=== PATIENT | male | born 1945 | race Caucasian/White ===

== ENCOUNTER 2020-08-17 22:07 | Inpatient (IN) | payer MEDICARE ==
[~2020-08-17] VITALS: Ht 182.9 cm; Wt 68.7 kg
[~2020-08-17 22:07] MED LIST: ALBUTEROL; APIX5TAB PO; ASPI-963 PO; CEFD300C37 PO; CLOP75TA PO; DOXY100T PO; GLIM2TAB7 PO; METO25TA4 PO; MONT10TA17 PO; ROSU40TA22 PO
--- NOTE | 2020-08-17 22:20 | NUR ---
RAFIA RN: THIS IS A 75 YO MALE C/O "STABBING" CHEST PAIN X 2 HOURS TODAY BUT PER SON PT HAS BEEN C/O OF SAME INTERMITTENTLY OVER THE LAST TWO WEEKS. HX OF OPEN HEART SX IN 2019 AND "CODED TWICE ON TASHA LAST YEAR". PT REPORTS PAIN WAS 10/10 AND IS NOW 6/10. PT REPORTS HE TOOK A NEXIUM EARLY [employer]IL[employer]. PT AO X 4. SKIN PWD. RESP EVEN AND UNLABORED. PT ON CONT BP, CARDIAC AND SPO2 MONITORS. EKG DONE. ELIAZAR MADRID AT BEDSIDE FOR EVAL.
[2020-08-17] MEDS ORDERED: ONDANSETRON 2MG/ML, 2ML IVPush ONE (22:30)
[2020-08-17] MEDS ORDERED: SODIUM CHLORIDE FLUSH 10ML SYR IVF ONE (22:30)
[2020-08-17] MEDS ORDERED: ASPIRIN 81 MG TABLET CHEW PO ONE (22:30)
[2020-08-17] MEDS ORDERED: MORPHINE SULFATE 4 MG/ML, 1ML IVPush PRN (22:30)
[2020-08-17] MEDS ORDERED: MORPHINE SULFATE 4 MG/ML, 1ML ONE (22:32)
[2020-08-17] MEDS ORDERED: ASPIRIN 81 MG TABLET CHEW ONE (22:32)
[2020-08-17] MEDS ORDERED: ONDANSETRON 2MG/ML, 2ML ONE (22:32)
--- NOTE | 2020-08-17 22:32 | NUR ---
XRAY AT BEDSIDE AT THIS TIME
[2020-08-17 22:45] LABS: BASOPHILS % (AUTO) 1 % (0-1); EOSINOPHILS % (AUTO) 14 % (1-7); LYMPHOCYTES % (AUTO) 23 % (22-44); MEAN CORPUSCULAR HEMOGLOBIN 28.8 pg (27.5-34.5); MEAN CORPUSCULAR HGB CONC 33.2 g/dL (33.2-36.2); MEAN PLATELET VOLUME 7.9 fL (7.4-10.4); MONOCYTES % (AUTO) 7 % (2-9); NEUTROPHILS % (AUTO) 56 % (42-75); PLATELET COUNT 264 x10^3/uL (130-400); RED BLOOD COUNT 4.58 x10^6/uL (4.38-5.82); RED CELL DISTRIBUTION WIDTH 17.7 % (9.4-14.8)
[2020-08-17 22:47] LABS: MD NO
[2020-08-17 22:52] LABS: ALANINE AMINOTRANSFERASE 25 U/L (12-78); ALBUMIN 3.7 g/dL (3.4-5.0); ANION GAP 4 mmol/L (5-15); CALCIUM 8.9 mg/dL (8.5-10.1); CHLORIDE 108 mmol/L (98-107); CREATININE 2.48 mg/dL (0.7-1.3)
[2020-08-17 22:56] LABS: ALKALINE PHOSPHATASE 68 U/L (45-117); BILIRUBIN,TOTAL 0.2 mg/dL (0.2-1.0); TOTAL PROTEIN 8.4 g/dL (6.4-8.2); TROPONIN I 0.016 ng/mL (0.000-0.045)
[2020-08-17] MEDS ORDERED: ALBU2.5V11 NEB (23:34)
[2020-08-17] MEDS ORDERED: AMOX-CLAV PO (23:34)
[2020-08-17] MEDS ORDERED: GABA300C PO (23:38)
[2020-08-17] MEDS ORDERED: FLUT1DIS3 INH (23:38)
[2020-08-17] MEDS ORDERED: LISI1TAB23 PO (23:38)
[2020-08-17] MEDS ORDERED: SITA100T PO (23:38)
[2020-08-17] MEDS ORDERED: PANT40TA6 PO (23:38)
[2020-08-18] MEDS ORDERED: SODIUM CHLORIDE 0.9% 1,000ML IVBOLUS ONE
[2020-08-18] MEDS ORDERED: NITROGLYCERIN OINT 2%, 1GM TP ONE ×2 (00:10)
--- NOTE | 2020-08-18 00:31 | NUR ---
HOSPITALIST AT BEDSIDE
--- NOTE | 2020-08-18 00:54 | NUR ---
Pt to be admitted to [facility], room 507. Report called to JO.
[2020-08-18] MEDS: INSULIN LISPRO 100 UNITS/ML, PEN SQ-INSULIN SCH ×5 (01:30→20:36)
[2020-08-18] MEDS ORDERED: GLUCAGON 1 MG IM PRN (01:30)
[2020-08-18] MEDS ORDERED: DEXTROSE 50%, 50ML SYRINGE IVPush PRN (01:30)
[2020-08-18 02:10] VITALS: BP 115/67
[2020-08-18 02:34] LABS: CHLORIDE,URINE RANDOM 144 mmol/L; POTASSIUM,URINE RANDOM 18 mmol/L; SODIUM,URINE RANDOM 137 mmol/L
[2020-08-18] MEDS ORDERED: SODIUM CHLORIDE 0.9% 1,000 ML IV SCH (06:00)
[2020-08-18 07:30] VITALS: BP 115/71
[2020-08-18] MEDS: ASPIRIN 81 MG TABLET EC PO SCH (08:37)
[2020-08-18] MEDS: PANTOPRAZOLE 40MG TABLET PO SCH (08:37)
[2020-08-18] MEDS: METOPROLOL TARTRATE 25 MG TAB PO SCH (08:37)
[2020-08-18] MEDS: CLOPIDOGREL 75 MG TABLET PO SCH (08:38)
[2020-08-18] MEDS: SODIUM CHLORIDE FLUSH 10ML SYR IVF SCH ×2 (08:40→20:35)
[2020-08-18] MEDS ORDERED: SODIUM CHLORIDE 0.9% 1,000ML IV ONE (10:00)
[2020-08-18 10:22] LABS: ALBUMIN 3.1 g/dL (3.4-5.0); ANION GAP 6 mmol/L (5-15); CALCIUM 8.5 mg/dL (8.5-10.1); CHLORIDE 111 mmol/L (98-107); CREATININE 1.72 mg/dL (0.7-1.3)
[2020-08-18 15:41] VITALS: BP 95/56
[2020-08-18 18:52] VITALS: BP 105/66
[2020-08-18] MEDS: MONTELUKAST 10 MG TABLET PO SCH (20:35)
[2020-08-18] MEDS ORDERED: TEMAZEPAM 15 MG CAPSULE PO PRN (21:30)
[2020-08-18] MEDS ORDERED: MELATONIN 5 MG TABLET PO PRN (21:30)
[2020-08-19 01:51] VITALS: BP 137/85
[2020-08-19 04:47] LABS: BASOPHILS % (AUTO) 1 % (0-1); EOSINOPHILS % (AUTO) 13 % (1-7); LYMPHOCYTES % (AUTO) 24 % (22-44); MEAN CORPUSCULAR HEMOGLOBIN 28.9 pg (27.5-34.5); MEAN CORPUSCULAR HGB CONC 33.4 g/dL (33.2-36.2); MEAN PLATELET VOLUME 7.5 fL (7.4-10.4); MONOCYTES % (AUTO) 9 % (2-9); NEUTROPHILS % (AUTO) 54 % (42-75); PLATELET COUNT 236 x10^3/uL (130-400); RED BLOOD COUNT 4.37 x10^6/uL (4.38-5.82); RED CELL DISTRIBUTION WIDTH 17.9 % (9.4-14.8)
[2020-08-19 04:56] LABS: MD NO
[2020-08-19 04:59] LABS: ANION GAP 4 mmol/L (5-15); CALCIUM 9.3 mg/dL (8.5-10.1); CHLORIDE 110 mmol/L (98-107); CREATININE 1.56 mg/dL (0.7-1.3)
[2020-08-19] MEDS ORDERED: SODIUM CHLORIDE 0.9% 1,000 ML IV SCH ×2 (06:00→08:30)
[2020-08-19] MEDS: INSULIN LISPRO 100 UNITS/ML, PEN SQ-INSULIN SCH ×4 (07:00→20:32)
[2020-08-19 07:03] VITALS: BP 148/74
[2020-08-19] MEDS: SODIUM CHLORIDE FLUSH 10ML SYR IVF SCH ×2 (08:00→20:19)
[2020-08-19] MEDS ORDERED: FENTANYL PF 100 MCG/2ML ONE (12:22)
[2020-08-19] MEDS ORDERED: MIDAZOLAM 1 MG/ML, 5ML ONE (12:22)
[2020-08-19] MEDS ORDERED: BIVALIRUDIN 250 MG ONE (12:22)
[2020-08-19] MEDS ORDERED: LIDOCAINE 1%, 20ML ONE (12:23)
[2020-08-19] MEDS ORDERED: HEPARIN 1,000 UNITS/ML, 10ML ONE (12:23)
[2020-08-19 12:58] VITALS: BP 121/78
[2020-08-19] MEDS: ASPIRIN 81 MG TABLET EC PO SCH (14:40)
[2020-08-19] MEDS: METOPROLOL TARTRATE 25 MG TAB PO SCH (14:40)
[2020-08-19] MEDS: PANTOPRAZOLE 40MG TABLET PO SCH (14:40)
[2020-08-19] MEDS: CLOPIDOGREL 75 MG TABLET PO SCH (14:40)
[2020-08-19 19:03] VITALS: BP 145/78
[2020-08-19] MEDS: MONTELUKAST 10 MG TABLET PO SCH (20:18)
[2020-08-20 01:48] VITALS: BP 126/77
[2020-08-20 06:59] VITALS: BP 126/79
[2020-08-20] MEDS: PANTOPRAZOLE 40MG TABLET PO SCH (08:23)
[2020-08-20] MEDS: METOPROLOL TARTRATE 25 MG TAB PO SCH (08:23)
[2020-08-20] MEDS: CLOPIDOGREL 75 MG TABLET PO SCH (08:23)
[2020-08-20] MEDS: ASPIRIN 81 MG TABLET EC PO SCH (08:23)
[2020-08-20] MEDS: SODIUM CHLORIDE FLUSH 10ML SYR IVF SCH ×2 (08:24→21:49)
[2020-08-20] MEDS: INSULIN LISPRO 100 UNITS/ML, PEN SQ-INSULIN SCH ×4 (08:27→21:48)
[2020-08-20 12:34] VITALS: BP 128/65
[2020-08-20 18:45] VITALS: BP 104/68
[2020-08-20] MEDS: APIXABAN 5 MG TABLET PO SCH (21:45)
[2020-08-20] MEDS: MONTELUKAST 10 MG TABLET PO SCH (21:45)
[2020-08-21 00:33] VITALS: BP 130/75
[2020-08-21 04:59] LABS: BASOPHILS % (AUTO) 0 % (0-1); EOSINOPHILS % (AUTO) 17 % (1-7); LYMPHOCYTES % (AUTO) 27 % (22-44); MEAN CORPUSCULAR HEMOGLOBIN 28.9 pg (27.5-34.5); MEAN CORPUSCULAR HGB CONC 33.8 g/dL (33.2-36.2); MEAN PLATELET VOLUME 7.4 fL (7.4-10.4); MONOCYTES % (AUTO) 7 % (2-9); NEUTROPHILS % (AUTO) 49 % (42-75); PLATELET COUNT 225 x10^3/uL (130-400); RED CELL DISTRIBUTION WIDTH 17.8 % (9.4-14.8)
[2020-08-21 05:09] LABS: MD NO
[2020-08-21 05:10] LABS: ALBUMIN 3.1 g/dL (3.4-5.0); ANION GAP 5 mmol/L (5-15); CHLORIDE 107 mmol/L (98-107); CREATININE 1.38 mg/dL (0.7-1.3)
[2020-08-21] MEDS: INSULIN LISPRO 100 UNITS/ML, PEN SQ-INSULIN SCH (07:00)
[2020-08-21 07:29] VITALS: BP 135/78
[2020-08-21] MEDS: ASPIRIN 81 MG TABLET EC PO SCH (08:48)
[2020-08-21] MEDS: APIXABAN 5 MG TABLET PO SCH (08:48)
[2020-08-21] MEDS: CLOPIDOGREL 75 MG TABLET PO SCH (08:48)
[2020-08-21] MEDS: PANTOPRAZOLE 40MG TABLET PO SCH (08:48)
[2020-08-21] MEDS: METOPROLOL TARTRATE 25 MG TAB PO SCH (08:49)
[2020-08-21] MEDS: SODIUM CHLORIDE FLUSH 10ML SYR IVF SCH (08:51)
== END 2020-08-21 11:00 | disposition home health service (06) | DRG 281 ==
LOC: ED 22:37 → 5SO 08-18 00:22 → DCLOUNGE 08-21 10:51
PROVIDERS: ADMIT Internal Medicine; ATTEND Family Medicine
PROC: B2131ZZ Fluoroscopy of Multiple Coronary Artery Bypass Grafts using Low Osmolar Contrast (ICD-10-PCS; principal; 2020-08-19)
PROC: 4A023N7 Measurement of Cardiac Sampling and Pressure, Left Heart, Percutaneous Approach (ICD-10-PCS; 2020-08-19)
PROC: B2111ZZ Fluoroscopy of Multiple Coronary Arteries using Low Osmolar Contrast (ICD-10-PCS; 2020-08-19)
PROC: B2151ZZ Fluoroscopy of Left Heart using Low Osmolar Contrast (ICD-10-PCS; 2020-08-19)
DX: I21.4 Non-ST elevation (NSTEMI) myocardial infarction (principal); N17.9 Acute kidney failure, unspecified; D68.59 Other primary thrombophilia; I25.118 Atherosclerotic heart disease of native coronary artery with other forms of angina pectoris; I13.10 Hypertensive heart and chronic kidney disease without heart failure, with stage 1 through stage 4 chronic kidney disease, or unspecified chronic kidney disease; E11.22 Type 2 diabetes mellitus with diabetic chronic kidney disease; Z88.8 Allergy status to other drugs, medicaments and biological substances; D64.9 Anemia, unspecified; E11.51 Type 2 diabetes mellitus with diabetic peripheral angiopathy without gangrene; E78.5 Hyperlipidemia, unspecified; I25.5 Ischemic cardiomyopathy; I35.0 Nonrheumatic aortic (valve) stenosis; I48.0 Paroxysmal atrial fibrillation; J45.909 Unspecified asthma, uncomplicated; N18.9 Chronic kidney disease, unspecified; Z79.82 Long term (current) use of aspirin; Z86.73 Personal history of transient ischemic attack (TIA), and cerebral infarction without residual deficits; Z86.74 Personal history of sudden cardiac arrest; Z87.891 Personal history of nicotine dependence; Z79.899 Other long term (current) drug therapy; Z86.16 Personal history of COVID-19
CPT/HCPCS: 36415; 71045; 76770; 80048; 80053; 80069; 82436; 82962; 83036; 83735; 84133; 84300; 84484; 85025; 93005; 93306; 93459; 96374; 96375; 99156; 99157; C1760; C1769; C1894; G0378; J0583; J1644; J2250; J2405; J3010; J1815; J2270; J7030; Q9967